=== PATIENT | female | born 1975 | race Caucasian/White ===

== ENCOUNTER 2018-01-14 09:34 | Day surgery (SDC) | payer OTHER ==
[2018-01-14] MEDS ORDERED: NEXIUM 24HR20 MG PO (14:49)
== END 2018-01-14 17:25 | disposition home or self-care (01) ==
LOC: AMB-ENDOS 09:34
DX: K29.00 Acute gastritis without bleeding (principal); K29.90 Gastroduodenitis, unspecified, without bleeding